=== PATIENT | female | born 1985 | race Caucasian/White ===

== ENCOUNTER 2018-09-04 17:31 | Emergency (ER) | payer BC, MEDICAID ==
[~2018-09-04] VITALS: Ht 180.3 cm; Wt 64.4 kg
[~2018-09-04 17:31] MED LIST: AMOX500C2 PO; CEPH250T PO
--- OUTSIDE RECORDS SUMMARY | 2018-09-04 17:37 | XMS REPORT ---
Author Author ELÍAS GOINS Organization [facility] Address [address] [place] [address] Care Team Providers Care Hand Painter Name Role Phone ELÍAS GOINS Unavailable PROBLEMS Unknown Problems ALLERGIES No Known Allergies ENCOUNTERS Encounter Location Date Diagnosis [facility] [address] [facility] [id number] [phone] May, Dental examination Z01.20 [facility] [address] [id number] [phone] Feb, Dental examination Z01.20 and Dental caries K02.9 IMMUNIZATIONS No Known Immunizations SOCIAL HISTORY Never Assessed REASON FOR VISIT ti PLAN OF CARE Activity Details Follow Up prn Reason:Extraction pending medical clearance VITAL SIGNS MEDICATIONS Medication Instructions Dosage Frequency Start Date End Date Duration Status Active RESULTS No Results PROCEDURES Procedure Date Ordered Result Body Site LTD ORAL EVALUATION - PROBLEM FOCUS May 30, 2017 INTRAORL-PERIAPICAL 1 FILM [id number] May 30, 2017 INSTRUCTIONS MEDICATIONS ADMINISTERED No Known Medications MEDICAL (GENERAL) HISTORY Type Description Date Medical History bronchitis Medical History back trouble Medical History neck injury Medical History 19 weeks Surgical History DNC 03/2014 Surgical History tonsilectomy Surgical History cholesectomy
--- OUTSIDE RECORDS SUMMARY | 2018-09-04 17:37 | XMS REPORT ---
Author Author ARMANDO GLOVER [facility] Address Unknown Care Team Providers Care Brew House Supervisor Name Role Phone ARMANDO GLOVER Unavailable PROBLEMS Unknown Problems ALLERGIES No Known Allergies ENCOUNTERS Encounter Location Date Diagnosis [facility] [id number] [phone] Mar, Dental examination Z01.20 and Dental caries K02.9 [facility] [id number] [address] January, [facility] [id number] [phone] May, Dental examination Z01.20 [facility] [id number] [phone] Feb, Dental examination Z01.20 and Dental caries K02.9 IMMUNIZATIONS No Known Immunizations SOCIAL HISTORY Never Assessed REASON FOR VISIT ti/marty kamara pt PLAN OF CARE Activity Details Follow Up prn Reason:hygiene VITAL SIGNS Blood pressure systolic 104 mmHg 2018-03-08 Blood pressure diastolic 68 mmHg 2018-03-08 MEDICATIONS Medication Instructions Dosage Frequency Start Date End Date Duration Status Active RESULTS No Results PROCEDURES Procedure Date Ordered Result Body Site LTD ORAL EVALUATION - PROBLEM FOCUS March 08, 2018 EXTRAC ERUPTED TOOTH/EXPOSED ROOT March 08, 2018 EXTRAC ERUPTED TOOTH/EXPOSED ROOT March 08, 2018 INSTRUCTIONS MEDICATIONS ADMINISTERED No Known Medications MEDICAL (GENERAL) HISTORY Type Description Date Medical History bronchitis Medical History back trouble Medical History neck injury Surgical History DNC 03/2014 Surgical History tonsilectomy Surgical History cholesectomy
--- OUTSIDE RECORDS SUMMARY | 2018-09-04 17:37 | XMS REPORT ---
Author Author ELÍAS Nath Organization [facility] Address [address] [place] [address] Care Team Providers Care Brake Tester Name Role Phone ELÍAS Nath Unavailable PROBLEMS Unknown Problems ALLERGIES No Information ENCOUNTERS Encounter Location Date Diagnosis [facility] [id number] [place] [phone] Mar, Dental examination Z01.20 and Dental caries K02.9 [facility] [id number], [place] [phone] January, [facility] [id number] [place] [phone] May, Dental examination Z01.20 [facility] [id number] [place] [phone] Feb, Dental examination Z01.20 and Dental caries K02.9 IMMUNIZATIONS No Known Immunizations SOCIAL HISTORY Never Assessed REASON FOR VISIT Requests return call PLAN OF CARE VITAL SIGNS MEDICATIONS Unknown Medications RESULTS No Results PROCEDURES No Known procedures INSTRUCTIONS MEDICATIONS ADMINISTERED No Known Medications MEDICAL (GENERAL) HISTORY Type Description Date Medical History bronchitis Medical History back trouble Medical History neck injury Surgical History DNC 03/2014 Surgical History tonsilectomy Surgical History cholesectomy
[2018-09-04 17:59] VITALS: BP 114/74
--- NOTE | 2018-09-04 18:42 | ED Cough/URI ---
General Chief Complaint: Cough/Cold/Flu Symptoms Stated Complaint: BILAT EAR PAIN/CONGESTION Nursing Triage Note: PT PRESENTS TO ED WITH COMPLAINTS OF BILATERAL EAR PAIN AND RUNNY NOSE. Source: patient Exam Limitations: no limitations History of Present Illness Date Seen by Provider: Sep 04, 2018 Time Seen by Provider: 18:42 Initial Comments patient left prior to being seen. Allergies and Home Medications Allergies Coded Allergies: amoxicillin (Verified Allergy, Unknown, 09/04/18) Home Medications No Active Prescriptions or Reported Meds Patient Home Medication List Home Medication List Reviewed: Yes Review of Systems Review of Systems Constitutional: other (patient left prior to being seen.) Past Tgdhcuq-Kavcaz-Goluev Hx Patient Social History Alcohol Use: Denies Use Recreational Drug Use: No Smoking Status: Never a Smoker Recent Foreign Travel: No Contact w/Someone Who Travel: No Recent Infectious Disease Expo: No Recent Hopitalizations: Yes Past Medical History Surgeries: Yes (DNC) Gallbladder, Tonsillectomy Respiratory: No Cardiac: No Neurological: No Last Menstrual Period: Aug 07, 2018 Sexually Transmitted Disease: Yes Genitourinary: No Gastrointestinal: No Musculoskeletal: No Endocrine: No HEENT: No Cancer: No Psychosocial: No Blood Disorders: No Physical Exam Vital Signs - First Documented 09/04/18 09/04/18 17:59 18:14 Temp 97.1 Pulse 70 Resp 18 B/P (MAP) 114/74 (87) Pulse Ox 100 O2 Delivery Room Air Capillary Refill : Less Than 3 Seconds Height: 5'11.00" Weight: 142lbs. oz. 64.696823cp; BMI Method:Stated General Appearance: other (patient left prior to being seen.) Progress/Results/Core Measures Suspected Sepsis Recent Fever Within 48 Hours: No Infection Criteria Present: None New/Unexplained Altered Menta: No Sepsis Screen: No Definite Risk SIRS Temperature:97.1 Pulse: 70 Respiratory Rate: 18 Blood Pressure 114 /74 Mean: 87 Results/Orders My Orders Orders - JAZMINE CALIX Influenza A And B Antigens (09/04/18 18:56) Vital Signs/I&O 09/04/18 09/04/18 17:59 18:14 Temp 97.1 Pulse 70 Resp 18 B/P (MAP) 114/74 (87) Pulse Ox 100 O2 Delivery Room Air Capillary Refill : Less Than 3 Seconds Blood Pressure Mean: 87 Departure Communication (Admissions) Dr. Leigh notified of patient leaving prior to being seen. Impression Primary Impression: Patient left without being seen Disposition: 07 AGAINST MEDICAL ADVICE (patient left prior to being seen.) Condition: Against Medical Advice (patient left prior to being seen.) Departure-Patient Inst. Referrals: PINA HAMLIN (PCP/Family) Primary Care Physician Scripts No Active Prescriptions or Reported Meds JAZMINE CALIX Sep 04, 2018 18:42
== END 2018-09-04 19:00 | disposition left against medical advice (07) ==
LOC: EDUNIT# 17:31 → ER 17:34
DX: H92.03 Otalgia, bilateral (principal); R09.81 Nasal congestion; Z88.0 Allergy status to penicillin; Z90.89 Acquired absence of other organs; Z98.890 Other specified postprocedural states; Z86.19 Personal history of other infectious and parasitic diseases
CPT/HCPCS: 99282

== ENCOUNTER 2018-11-15 18:39 | Observation (INO) | payer BC ==
[~2018-11-15] VITALS: Ht 177.8 cm; Wt 61.5 kg
[2018-11-15] MEDS ORDERED: ONDA4TAB11 PO (18:55)
[2018-11-15] MEDS ORDERED: NS IV 1000 ML 1,000 ML IV SCH (19:15)
[2018-11-15] MEDS ORDERED: ACETAMINOPHEN 500 MG TAB (TYLENOL) PO ONE (19:15)
[2018-11-15] MEDS ORDERED: ONDANSETRON 4 MG/2 ML (SDV) Z0FRAN IVP ONE (19:15)
--- NOTE | 2018-11-15 19:18 | ED General ---
General Chief Complaint: Abdominal/GI Problems Stated Complaint: VOMITING,INFLUENZA A,EIGHT WEEKS PREG Nursing Triage Note: pt presents to ed with complaints of n/v/d startimng this am. reports she has been unable to keep any food or liquid down today. pt was diagnosed with flu a yesterday [facility]. pt is also aprox 8 weeks preg. Nursing Sepsis Screen: Possible Sepsis Risk Source of Information: Patient Exam Limitations: No Limitations History of Present Illness Date Seen by Provider: Nov 15, 2018 Time Seen by Provider: 19:15 Initial Comments To ER with reports of nausea vomiting diarrhea that began this morning. She was diagnosed with influenza A based on a flu swab was done at the [facility] yesterday, her symptoms at that time were headache cough sore throat and fever that began on Monday11/12/18. She is prescribed Zofran and Tamiflu. She did not even try to take the Tamiflu because it has historically nauseated her. She did attempt the sublingual Zofran but states that she threw up. She tried to take Tylenol earlier today but vomited as soon as she took it. She is about 8.5 weeks gestation following with Dr. Rivera, Ab4. Primary care provider is Pina Hamlin nurse practitioner. Timing/Duration: 3-4 Days Severity: Moderate Associated Systoms: Cough, Fever/Chills, Nausea/Vomiting, Weakness Allergies and Home Medications Allergies Coded Allergies: amoxicillin (Verified Allergy, Unknown, 09/04/18) Home Medications Potassium Chloride 20 Meq Packet, 40 MEQ PO DAILY Prescribed by: EM PORTILLO on 11/15/182221 Promethazine HCl 25 Mg Tablet, 25 MG PO Q8H PRN for NAUSEA/VOMITING Prescribed by: EM PORTILLO on 11/15/182221 Patient Home Medication List Home Medication List Reviewed: Yes Review of Systems Review of Systems Constitutional: see HPI, chills, fever, malaise, weakness EENTM: see HPI, throat pain Respiratory: see HPI, cough Cardiovascular: no symptoms reported Genitourinary: no symptoms reported Expected Date of Delivery: Jun 25, 2019 Musculoskeletal: no symptoms reported Skin: no symptoms reported Psychiatric/Neurological: No Symptoms Reported Past Gkkjzsd-Ksgoze-Tipwfw Hx Patient Social History Alcohol Use: Denies Use Recreational Drug Use: No Smoking Status: Never a Smoker Recent Foreign Travel: No Contact w/Someone Who Travel: No Recent Infectious Disease Expo: No Recent Hopitalizations: Yes Physical Abuse: No Sexual Abuse: No Mistreated: No Fear: No Past Medical History Surgeries: Yes (DNC) Gallbladder, Tonsillectomy Respiratory: No Cardiac: No Neurological: No : Yes Expected Date of Delivery: Jun 25, 2019 Sexually Transmitted Disease: Yes Genitourinary: No Gastrointestinal: No Musculoskeletal: No Endocrine: No HEENT: No Cancer: No Psychosocial: No Integumentary: No Blood Disorders: No Physical Exam Vital Signs Vital Signs - First Documented 11/15/18 18:48 Temp 103.3 Pulse 154 Resp 22 B/P (MAP) 97/63 (74) Pulse Ox 97 Capillary Refill : Less Than 3 Seconds Height, Weight, BMI Height: 5'11.00" Weight: 139lbs. oz. 63.449987cn; BMI Method:Stated General Appearance: No Apparent Distress, WD/WN Eyes: Bilateral Eye Normal Inspection, Bilateral Eye PERRL, Bilateral Eye EOMI HEENT: PERRL/EOMI, TMs Normal Respiratory: No Accessory Muscle Use, No Respiratory Distress Cardiovascular: Regular Rate, Rhythm, Normal Peripheral Pulses Gastrointestinal: Non Tender, Soft Extremity: Normal Capillary Refill, Normal Inspection Neurologic/Psychiatric: Alert, Oriented x3 Skin: Normal Color, Warm/Dry Progress/Results/Core Measures Suspected Sepsis Recent Fever Within 48 Hours: Yes Infection Criteria Present: Documented Infection New/Unexplained Altered Menta: No Sepsis Screen: Possible Sepsis Risk SIRS Temperature:103.3 Pulse: 154 Respiratory Rate: 22 Laboratory Tests 11/15/18 19:11: White Blood Count 10.8 Blood Pressure 97 /63 Mean: 74 Laboratory Tests 11/15/18 19:11: Creatinine 0.99, Platelet Count 106L, Total Bilirubin 0.5 Results/Orders Lab Results Laboratory Tests Test 11/15/18 19:11 Range/Units White Blood Count 10.8 4.3-11.0 10^3/uL Red Blood Count 4.92 4.35-5.85 10^6/uL Hemoglobin 15.1 11.5-16.0 G/DL Hematocrit 43 35-52 % Mean Corpuscular Volume 88 80-99 FL Mean Corpuscular Hemoglobin 31 25-34 PG Mean Corpuscular Hemoglobin Concent 35 32-36 G/DL Red Cell Distribution Width 12.9 10.0-14.5 % Platelet Count 106 L 130-400 10^3/uL Mean Platelet Volume 10.9 H 7.4-10.4 FL Neutrophils (%) (Auto) 93 H 42-75 % Lymphocytes (%) (Auto) 4 L 12-44 % Monocytes (%) (Auto) 2 0-12 % Eosinophils (%) (Auto) 0 0-10 % Basophils (%) (Auto) 0 0-10 % Neutrophils # (Auto) 10.1 H 1.8-7.8 X 10^3 Lymphocytes # (Auto) 0.5 L 1.0-4.0 X 10^3 Monocytes # (Auto) 0.2 0.0-1.0 X 10^3 Eosinophils # (Auto) 0.0 0.0-0.3 10^3/uL Basophils # (Auto) 0.0 0.0-0.1 10^3/uL Neutrophils % (Manual) 73 % Lymphocytes % (Manual) 11 % Monocytes % (Manual) 1 % Eosinophils % (Manual) 0 % Basophils % (Manual) 0 % Metamyelocytes % 1 % Band Neutrophils 14 % Blood Morphology Comment NORMAL Sodium Level 137 135-145 MMOL/L Potassium Level 3.2 L 3.6-5.0 MMOL/L Chloride Level 101 98-107 MMOL/L Carbon Dioxide Level 20 L 21-32 MMOL/L Anion Gap 16 H 5-14 MMOL/L Blood Urea Nitrogen 9 7-18 MG/DL Creatinine 0.99 0.60-1.30 MG/DL Estimat Glomerular Filtration Rate > 60 BUN/Creatinine Ratio 9 Glucose Level 141 H 70-105 MG/DL Calcium Level 9.4 8.5-10.1 MG/DL Corrected Calcium 8.5-10.1 MG/DL Total Bilirubin 0.5 0.1-1.0 MG/DL Aspartate Amino Transf (AST/SGOT) 38 H 5-34 U/L Alanine Aminotransferase (ALT/SGPT) 37 0-55 U/L Alkaline Phosphatase 77 40-136 U/L Total Protein 8.1 6.4-8.2 GM/DL Albumin 4.8 H 3.2-4.5 GM/DL My Orders Orders - EM PORTILLO ROLL UP HELPER Cbc With Automated Diff (11/15/18 19:03) Comprehensive Metabolic Panel (11/15/18 19:03) Ua Culture If Indicated (11/15/18 19:03) Iv Heplock-Insert (Order) (11/15/18 19:03) Ns Iv 1000 Ml (Sodium Chloride 0.9%) (11/15/18 19:15) Ondansetron Injection (Zofran Injectio (11/15/18 19:15) Acetaminophen Tablet (Tylenol Tablet) (11/15/18 19:15) Manual Differential (11/15/18 19:11) Promethazine Injection (Phenergan Injec (11/15/18 20:15) Prochlorperazine Injection (Compazine In (11/15/18 20:15) Diphenhydramine Injection (Benadryl Inje (11/15/18 20:15) Lactated Ringers (Lr 1000 Ml Iv Solution (11/15/18 20:15) Drug Screen Stat (Urine) (11/15/18 20:08) Promethazine Injection (Phenergan Injec (11/15/18 20:15) Acetaminophen Suppository (Tylenol Suppo (11/15/18 21:00) Ibuprofen Tablet (Motrin Tablet) (11/15/18 21:00) Loperamide Capsule (Imodium Capsule) (11/15/18 22:15) Medications Given in ED Current Medications Medications Dose Ordered Sig/Fatmata Route Start Time Stop Time Status Last Admin Dose Admin Acetaminophen 650 mg ONCE ONCE AK 11/15/18 21:00 11/15/18 21:01 DC 11/15/18 20:54 650 MG Ibuprofen 800 mg ONCE ONCE PO 11/15/18 21:00 11/15/18 21:01 DC 11/15/18 21:09 800 MG Loperamide HCl 4 mg ONCE ONCE PO 11/15/18 22:15 11/15/18 22:16 DC 11/15/18 22:33 4 MG Ondansetron HCl 8 mg ONCE ONCE IVP 11/15/18 19:15 11/15/18 19:16 DC 11/15/18 19:30 8 MG Promethazine HCl 25 mg ONCE ONCE IVP 11/15/18 20:15 11/15/18 20:16 DC 11/15/18 20:18 25 MG Vital Signs/I&O 11/15/18 11/15/18 11/15/18 11/15/18 18:48 20:54 20:54 21:09 Temp 103.3 103.4 103.4 103.5 Pulse 154 Resp 22 B/P (MAP) 97/63 (74) Pulse Ox 97 Capillary Refill : Less Than 3 Seconds Blood Pressure Mean: 74 Departure Communication (Admissions) Time/Spoke to Admitting Phy: 22:41 2241-she has a blood pressure of 98/55, heart rate still 130 after 2 L of IV fluids. Her potassium is a bit low at 3.2. Her temperature has come down nicely to 99.1. Given that she is still hypotensive and tachycardic we will admit. I discussed the case with her surgery tech Dr. Rivera. Agrees to admit observation , nausea control, IV fluids, he has no further recommendations at this time. Impression Primary Impression: Influenza A Additional Impressions: Nausea vomiting and diarrhea volume depletion in Disposition: ADMITTED INPATIENT Condition: Stable Admissions Decision to Admit Reason: Admit from ER (General) Decision to Admit/Date: Nov 15, 2018 Time/Decision to Admit Time: 22:42 Departure-Patient Inst. Decision time for Depature: 22:13 Referrals: NO,LOCAL PHYSICIAN (PCP) Primary Care Physician PINA HAMLIN (Family) Primary Care Physician Work/School Note: Work Release Form Date Seen in the Emergency Department: Nov 15, 2018 Return to Work: Nov 21, 2018 Copy Copies To 1: DAMON MANNING PETER J APRN Nov 15, 2018 19:18
[2018-11-15 19:23] LABS: BASOPHILS % (AUTO) 0 % (0-10); EOSINOPHILS % (AUTO) 0 % (0-10); HEMATOCRIT 43 % (35-52); HEMOGLOBIN 15.1 G/DL (11.5-16.0); LYMPHOCYTES # (AUTO) 0.5 X 10^3 (1.0-4.0); LYMPHOCYTES % (AUTO) 4 % (12-44); MEAN CORPUSCULAR HEMOGLOBIN 31 PG (25-34); MEAN CORPUSCULAR HGB CONC 35 G/DL (32-36); MEAN CORPUSCULAR VOLUME 88 FL (80-99); MEAN PLATELET VOLUME 10.9 FL (7.4-10.4); MONOCYTES # (AUTO) 0.2 X 10^3 (0.0-1.0); MONOCYTES % (AUTO) 2 % (0-12); NEUTROPHILS # (AUTO) 10.1 X 10^3 (1.8-7.8); NEUTROPHILS % (AUTO) 93 % (42-75); PLATELET COUNT 106 10^3/uL (130-400); RED CELL DISTRIBUTION WIDTH 12.9 % (10.0-14.5); WHITE BLOOD COUNT 10.8 10^3/uL (4.3-11.0)
[2018-11-15 19:40] LABS: ALANINE AMINOTRANSFERASE 37 U/L (0-55); ALBUMIN 4.8 GM/DL (3.2-4.5); ALKALINE PHOSPHATASE 77 U/L (40-136); BILIRUBIN,TOTAL 0.5 MG/DL (0.1-1.0); BUN/CREATININE RATIO 9; CALCIUM 9.4 MG/DL (8.5-10.1); CARBON DIOXIDE 20 MMOL/L (21-32); CHLORIDE 101 MMOL/L (98-107); CREATININE SERUM 0.99 MG/DL (0.60-1.30); GFR ESTIMATED > 60; GLUCOSE 141 MG/DL (70-105); POTASSIUM 3.2 MMOL/L (3.6-5.0); SODIUM 137 MMOL/L (135-145); TOTAL PROTEIN 8.1 GM/DL (6.4-8.2)
--- NOTE | 2018-11-15 19:50 | NUR ---
PT REPORTS SHE CONTINUES TO BE NAUSEOUS AFTER ZOFRAN ADM. PROVIDER NOTIFIED.
[2018-11-15 19:53] LABS: BAND NEUTROPHILS 14 %; BASOPHILS % (MANUAL) 0 %; EOSINOPHILS % (MANUAL) 0 %; LYMPHOCYTES % (MANUAL) 11 %; METAMYELOCYTES % 1 %; MONOCYTES % (MANUAL) 1 %; NEUTROPHILS % (MANUAL) 73 %; RBC MORPH NORMAL
--- NOTE | 2018-11-15 20:08 | NUR ---
PT REFUSED PROMETHAZINE ADM. PT STATES, "I CAN'T TAKE THAT MEDICATION, IT MAKES ME NAUSEOUS."
--- NOTE | 2018-11-15 20:11 | NUR ---
THIS RN CALLED INTO PT ROOM. PT REQUESTING PROMETHAZINE @ THIS TIME. PT STATES, "I WAS THINKING OF THE WRONG MEDICATION, I CAN TAKE THAT." PROVIDER NOTIFIED.
[2018-11-15] MEDS ORDERED: LACTATED RINGERS 1,000 ML IV SCH (20:15)
[2018-11-15] MEDS ORDERED: PROMETHAZINE INJ 25 MG/ML (PHENERGAN) AMP IVP ONE ×2 (20:15)
[2018-11-15] MEDS ORDERED: diphenhydrAMINE 50 MG/ML INJ (BENADRYL) IVP ONE (20:15)
[2018-11-15] MEDS ORDERED: PROCHLORPERAZINE 10 MG/2ML INJ (COMPAZINE) IV ONE (20:15)
[2018-11-15] MEDS ORDERED: ACETAMINOPHEN 650 MG SUPP (TYLENOL) PR ONE (21:00)
[2018-11-15] MEDS ORDERED: IBUPROFEN 800 MG (MOTRIN) TAB PO ONE (21:00)
--- NOTE | 2018-11-15 22:05 | NUR ---
PCCT ASSISTED PT ONTO BEDSIDE COMMODE. PT NOTED TO BE INCONTINENT OF LOOSE BOWEL. Addendum: 11/15/18 at 2330 by LAYLA UNABLE TO OBTAIN URINE SAMPLE DT BOWEL CONTAMINATION.
[2018-11-15] MEDS ORDERED: LOPERAMIDE 2 MG (IMODIUM) CAP PO ONE (22:15)
[2018-11-15] MEDS ORDERED: PROM25TA14 PO (22:22)
[2018-11-15] MEDS ORDERED: POTA20PA28 PO (22:22)
[2018-11-15 23:25] VITALS: BP 98/57
[2018-11-15] MEDS ORDERED: IBUPROFEN 600 MG (MOTRIN) TAB PO PRN (23:45)
[2018-11-15] MEDS ORDERED: CATHETER FLUSH 10 ML SYR IV PRN (23:45)
[2018-11-15] MEDS ORDERED: ONDANSETRON 4 MG/2 ML (SDV) Z0FRAN IV PRN (23:45)
[2018-11-15] MEDS ORDERED: PROMETHAZINE INJ 25 MG/ML (PHENERGAN) AMP IV PRN (23:45)
[2018-11-16] MEDS: NS W/KCL 40 MEQ/L 1,000 ML IV SCH ×2 (00:24→07:54)
[2018-11-16 04:00] VITALS: BP 95/50
[2018-11-16 04:01] LABS: BILIRUBIN,URINE NEGATIVE (NEGATIVE); CLARITY,URINE CLEAR; COLOR,URINE YELLOW; GLUCOSE, URINE (UA) NEGATIVE (NEGATIVE); KETONES,URINE 2+ (NEGATIVE); LEUKOCYTE ESTERASE ,URINE 1+ (NEGATIVE); NITRITE,URINE NEGATIVE (NEGATIVE); PH,URINE 6 (5-9); PROTEIN,URINE NEGATIVE (NEGATIVE); UROBILINOGEN,URINE NORMAL (NORMAL)
[2018-11-16 04:17] LABS: AMPHETAMINE SCREEN, URINE NEGATIVE (NEGATIVE); BACTERIA,URINE FEW /HPF; BARBITURATE SCREEN URINE NEGATIVE (NEGATIVE); BENZODIAZEPINES SCREEN URINE NEGATIVE (NEGATIVE); CANNABINOID SCREEN, URINE NEGATIVE (NEGATIVE); COCAINE SCREEN URINE NEGATIVE (NEGATIVE); METHADONE STAT NEGATIVE (NEGATIVE); METHAMPHETAMINE SCREEN URINE S NEGATIVE (NEGATIVE); OPIATE SCREEN URINE NEGATIVE (NEGATIVE); OXYCODONE STAT NEGATIVE (NEGATIVE); PROPOXYPHENE STAT NEGATIVE (NEGATIVE); SQUAMOUS EPITHELIAL CELL,UR 0-2 /HPF; TRICYCLIC ANTIDEPRESSANTS SCRE NEGATIVE (NEGATIVE); WBC,URINE 0-2 /HPF
[2018-11-16 05:54] LABS: BASOPHILS % (AUTO) 0 % (0-10); EOSINOPHILS % (AUTO) 0 % (0-10); HEMATOCRIT 36 % (35-52); HEMOGLOBIN 12.6 G/DL (11.5-16.0); LYMPHOCYTES # (AUTO) 0.4 X 10^3 (1.0-4.0); LYMPHOCYTES % (AUTO) 5 % (12-44); MEAN CORPUSCULAR HEMOGLOBIN 31 PG (25-34); MEAN CORPUSCULAR HGB CONC 35 G/DL (32-36); MEAN CORPUSCULAR VOLUME 89 FL (80-99); MEAN PLATELET VOLUME 11.1 FL (7.4-10.4); MONOCYTES # (AUTO) 0.2 X 10^3 (0.0-1.0); MONOCYTES % (AUTO) 3 % (0-12); NEUTROPHILS # (AUTO) 6.9 X 10^3 (1.8-7.8); NEUTROPHILS % (AUTO) 91 % (42-75); PLATELET COUNT 85 10^3/uL (130-400); RED CELL DISTRIBUTION WIDTH 12.8 % (10.0-14.5); WHITE BLOOD COUNT 7.6 10^3/uL (4.3-11.0)
[2018-11-16] MEDS ORDERED: CATHETER FLUSH 10 ML SYR IV SCH (06:00)
[2018-11-16 06:07] LABS: BUN/CREATININE RATIO 14; CARBON DIOXIDE 18 MMOL/L (21-32); CHLORIDE 112 MMOL/L (98-107); CREATININE SERUM 0.66 MG/DL (0.60-1.30); GFR ESTIMATED > 60; GLUCOSE 118 MG/DL (70-105); POTASSIUM 3.1 MMOL/L (3.6-5.0); SODIUM 139 MMOL/L (135-145)
[2018-11-16] MEDS: ACETAMINOPHEN 325 MG TABLET PO PRN ×2 (07:55→18:01)
[2018-11-16 08:00] VITALS: BP 104/58
[2018-11-16] MEDS ORDERED: PREN-8 PO (10:00)
[2018-11-16] MEDS ORDERED: CHLORASEPTIC LOZENGE MM PRN (10:45)
[2018-11-16] MEDS ORDERED: APAP 300 MG/CODEINE 30 MG (TYLENOL #3) TAB PO PRN (10:45)
[2018-11-16] MEDS ORDERED: OSELTAMIVIR 75 MG (TAMIFLU) CAPSULE PO SCH (11:03)
[2018-11-16 12:00] VITALS: BP 101/57
--- NOTE | 2018-11-16 13:50 | History & Physical-OB/GYN ---
History of Present Illness History of Present Illness Reason for visit/HPI with confirmed Influenza Date of Admission Nov 15, 2018 at 22:38 Date Seen by a Provider: Nov 16, 2018 Time Seen by a Provider: 13:40 I consulted on this patient on 11/16/18 13:43 Attending Physician Iggy Ordoñez DO Admitting Physician No,Local Physician Consult Allergies and Home Medications Allergies Coded Allergies: amoxicillin (Verified Allergy, Unknown, 09/04/18) Home Medications Ondansetron 4 Mg Tab.rapdis, 4 MG PO Q8H PRN for NAUSEA/VOMITING-1ST LINE, ( Reported) Vit W-Ca,Fe,FA(<1 mg) 1 Each Tablet, 1 TAB PO DAILY, (Reported) Patient Home Medication List Home Medication List Reviewed: Yes Past Wlephqg-Gyvrdg-Onslgk Hx Patient Social History Marrital Status: Number of Children: 4 Number of living children: 4 Alcohol Use: Denies Use Recreational Drug Use: No Smoking Status: Never a Smoker Recent Foreign Travel: No Contact w/other who traveled: No Recent Hopitalizations: Yes Recent Infectious Disease Expo: No Surgeries Yes (DNC) Gallbladder, Tonsillectomy Respiratory No Cardiovascular No Neurological No Reproductive System : Yes Expected Date of Delivery: Jun 25, 2019 Sexually Transmitted Disease: Yes Genitourinary No Gastrointestinal No Musculoskeletal No Endocrine History of Endocrine Disorders: No HEENT History of HEENT Disorders: No Cancer No Psychosocial History of Psychiatric Problem: No Integumentary History of Skin or Integumenta: No Blood Transfusions History of Blood Disorders: No Review of Systems Constitutional: fever, weakness, other (Tachycardia) Physical Exam Physical Exam Vital Signs Vital Signs Date Time Temp Pulse Resp B/P (MAP) Pulse Ox O2 Delivery O2 Flow Rate FiO2 11/16/18 08:00 98.4 95 18 104/58 (73) 100 Room Air 11/16/18 08:00 Room Air 11/16/18 04:00 98.7 89 20 95/50 (65) Room Air 11/15/18 23:25 96.6 109 20 98/57 97 Room Air 11/15/18 23:25 Room Air 11/15/18 23:17 99.3 130 18 96/63 (74) 98 Room Air 11/15/18 21:09 103.5 11/15/18 20:54 103.4 11/15/18 20:54 103.4 3/14/19 18:48 103.3 154 22 97/63 (71) 97 I & O 11/16/18 07:00 Intake Total 2340 ml Balance 2340 ml Capillary Refill : Less Than 3 Seconds Labs Laboratory Tests 11/15/18 19:11: White Blood Count 10.8, Red Blood Count 4.92, Hemoglobin 15.1, Hematocrit 43, Mean Corpuscular Volume 88, Mean Corpuscular Hemoglobin 31, Mean Corpuscular Hemoglobin Concent 35, Red Cell Distribution Width 12.9, Platelet Count 106L, Mean Platelet Volume 10.9H, Neutrophils (%) (Auto) 93H, Lymphocytes (%) (Auto) 4L, Monocytes (%) (Auto) 2, Eosinophils (%) (Auto) 0, Basophils (%) (Auto) 0, Neutrophils # (Auto) 10.1H, Lymphocytes # (Auto) 0.5L, Monocytes # (Auto) 0.2, Eosinophils # (Auto) 0.0, Basophils # (Auto) 0.0, Neutrophils % (Manual) 73, Lymphocytes % (Manual) 11, Monocytes % (Manual) 1, Eosinophils % (Manual) 0, Basophils % (Manual) 0, Metamyelocytes % 1, Band Neutrophils 14, Blood Morphology Comment NORMAL, Sodium Level 137, Potassium Level 3.2L, Chloride Level 101, Carbon Dioxide Level 20L, Anion Gap 16H, Blood Urea Nitrogen 9, Creatinine 0.99, Estimat Glomerular Filtration Rate > 60, BUN/Creatinine Ratio 9 , Glucose Level 141H, Calcium Level 9.4, Corrected Calcium , Total Bilirubin 0.5 , Aspartate Amino Transf (AST/SGOT) 38H, Alanine Aminotransferase (ALT/SGPT) 37 , Alkaline Phosphatase 77, Total Protein 8.1, Albumin 4.8H 11/16/18 03:45: Urine Color YELLOW, Urine Clarity CLEAR, Urine pH 6, Urine Specific [place] 1.015L, Urine Protein NEGATIVE, Urine Glucose (UA) NEGATIVE, Urine Ketones 2+H, Urine Nitrite NEGATIVE, Urine Bilirubin NEGATIVE, Urine Urobilinogen NORMAL, Urine Leukocyte Esterase 1+H, Urine RBC (Auto) NEGATIVE, Urine RBC NONE, Urine WBC 0-2, Urine Squamous Epithelial Cells 0-2, Urine Crystals NONE, Urine Bacteria FEWH, Urine Casts NONE, Urine Mucus NEGATIVE, Urine Culture Indicated NO, Urine Opiates Screen NEGATIVE, Urine Oxycodone Screen NEGATIVE, Urine Methadone Screen NEGATIVE, Urine Propoxyphene Screen NEGATIVE, Urine Barbiturates Screen NEGATIVE, Ur Tricyclic Antidepressants Screen NEGATIVE, Urine Phencyclidine Screen NEGATIVE, Urine Amphetamines Screen NEGATIVE, Urine Methamphetamines Screen NEGATIVE, Urine Benzodiazepines Screen NEGATIVE, Urine Cocaine Screen NEGATIVE, Urine Cannabinoids Screen NEGATIVE 11/16/18 05:28: White Blood Count 7.6, Red Blood Count 4.04L, Hemoglobin 12.6, Hematocrit 36, Mean Corpuscular Volume 89, Mean Corpuscular Hemoglobin 31, Mean Corpuscular Hemoglobin Concent 35, Red Cell Distribution Width 12.8, Platelet Count 85L, Mean Platelet Volume 11.1H, Neutrophils (%) (Auto) 91H, Lymphocytes (%) (Auto) 5L, Monocytes (%) (Auto) 3, Eosinophils (%) (Auto) 0, Basophils (%) (Auto) 0, Neutrophils # (Auto) 6.9, Lymphocytes # (Auto) 0.4L, Monocytes # (Auto) 0.2, Eosinophils # (Auto) 0.0, Basophils # (Auto) 0.0, Sodium Level 139, Potassium Level 3.1L, Chloride Level 112#H, Carbon Dioxide Level 18L, Anion Gap 9, Blood Urea Nitrogen 9, Creatinine 0.66, Estimat Glomerular Filtration Rate > 60, BUN/ Creatinine Ratio 14, Glucose Level 118H, Calcium Level 8.0L Assessment/Plan Assessment and Plan Assessment: Fever 2. Tachycardia 3. Influenza 4. Intrauterine at approximately 8 weeks 5. Hyperemesis Plan: Admitted to the hospital for fever control and flu treatment. Once Ms. Claudio fever came down, so did her heart rate. We started Ms. Claudio on Tamiflu Admission Diagnosis Admission Status: Observation Reason for Inpatient Admission: with fever and maternal tachycardia Clinical Quality Measures DVT/VTE Risk/Contraindication: Risk Factor Score Per Nursin RFS Level Per Nursing on Admit: 2=Moderate IGGY ORDOÑEZ DO Nov 16, 2018 13:49
--- NOTE | 2018-11-16 13:53 | Discharge Inst-Simple/Standard ---
Discharge Inst-Standard Discharge Medications New, Converted or Re-Newed RX: RX Given to Pt/Family Patient Instructions/Follow Up Plan of Care/Instructions/FU: Discharge to home with instructions, prescriptions and a follow up appointment for 11/19/2018 Activity as Tolerated: Yes Discharge Diet: No Restrictions Return to The Hospital For: Temperature elevation, worsening of symptoms DAMON MANNING DO Nov 16, 2018 13:53
[2018-11-16] MEDS ORDERED: PROM25TA14 PO (13:59)
[2018-11-16] MEDS ORDERED: ACET1TAB43 PO (13:59)
[2018-11-16] MEDS ORDERED: OSLT75C PO (13:59)
[2018-11-16] MEDS ORDERED: diphenhydrAMINE 50 MG/ML INJ (BENADRYL) IVP NR (14:10)
== END 2018-11-16 18:30 | disposition home or self-care (01) ==
LOC: EDUNIT# 18:39 → ER 18:41 → 4TH 22:38
PROVIDERS: ADMIT Obstetrics & Gynecology; ATTEND Obstetrics & Gynecology
DX: O99.511 Diseases of the respiratory system complicating pregnancy, first trimester (principal); J10.1 Influenza due to other identified influenza virus with other respiratory manifestations; O21.0 Mild hyperemesis gravidarum; R50.9 Fever, unspecified; R00.0 Tachycardia, unspecified; O99.281 Endocrine, nutritional and metabolic diseases complicating pregnancy, first trimester; E86.9 Volume depletion, unspecified; Z3A.08 8 weeks gestation of pregnancy
CPT/HCPCS: 36415; 80048; 80053; 80306; 81000; 85007; 85025; 85027; 93041; 96361; 96374; 96375; G0378

== ENCOUNTER 2019-02-23 19:47 | Emergency (ER) | payer BC, MEDICAID ==
[~2019-02-23] VITALS: Ht 177.8 cm; Wt 61.5 kg
[~2019-02-23 19:47] MED LIST changes: +ACET1TAB43 PO; +ONDA4TAB11 PO; +OSLT75C PO; +POTA20PA28 PO; +PREN-8 PO; +PROM25TA14 PO
[2019-02-23] MEDS ORDERED: CEPHALEXIN 250 MG (KEFLEX) CAP PO STA (20:10)
[2019-02-23] MEDS ORDERED: ACETAMINOPHEN 500 MG TAB (TYLENOL) PO STA (20:12)
[2019-02-23] MEDS ORDERED: LIDOCAINE 2% VISCOUS 15 ML UDC PO ONE (20:15)
--- NOTE | 2019-02-23 20:20 | ED EENT ---
History of Present Illness General Chief Complaint: Dental Problems/Pain Stated Complaint: TOOTHACHE Source: patient Exam Limitations: no limitations History of Present Illness Date Seen by Provider: Feb 23, 2019 Time Seen by Provider: 19:57 Initial Comments Here with complaint of dental pain after extraction. She apparently had 13 teeth removed from the maxilla. This was essentially all remaining teeth in the upper mouth. Complains of pain that is not getting better since instructions are all days ago. The stitches have subsequently fallen out. No fever. She has taken Tylenol 3 at nighttime and can't take it during the day because she has to function because she has 4 other kids. She is 23 weeks . She is not currently on antibiotics. She is concerned about that. She is allergic to penicillin but has taken cephalexin without problems previously. She has not tried Tylenol/acetaminophen in lieu of the Tylenol 3 or with for pain relief. She did note yesterday.. She is having not breathing or swallowing problems. No nausea or vomiting. Timing/Duration: other (last 3 days) Severity: moderate Location: mouth, dental Prearrival Treatment: prescription meds Associated Symptoms: No facial pain/swelling, No fever Allergies and Home Medications Allergies Coded Allergies: amoxicillin (Verified Allergy, Unknown, 09/04/18) Home Medications Acetaminophen with Codeine 1 Each Tablet, 1 TAB PO Q6H PRN for PAIN-MODERATE Prescribed by: DAMON MANNING on 11/16/18 1352 Ondansetron 4 Mg Tab.rapdis, 4 MG PO Q8H PRN for NAUSEA/VOMITING-1ST LINE, (Reported) Oseltamivir Phosphate 75 Mg Cap, 75 MG PO BID Prescribed by: DAMON MANNING on 11/16/18 1359 Vit W-Ca,Fe,FA(<1 mg) 1 Each Tablet, 1 TAB PO DAILY, (Reported) Promethazine HCl 25 Mg Tablet, 25 MG PO Q6H PRN for NAUSEA/VOMITING Prescribed by: DAMON MANNIGN on 11/16/18 1359 Patient Home Medication List Home Medication List Reviewed: Yes Review of Systems Review of Systems Constitutional: see HPI; No chills, No fever Mouth: see HPI, pain; denies swelling, denies bloody discharge, denies clear discharge, denies purulent discharge Throat: no symptoms reported Respiratory: no symptoms reported Cardiovascular: no symptoms reported Gastrointestinal: no symptoms reported Past Ihxrnjm-Oynhre-Svzzll Hx Past Med/Social Hx: Reviewed Nursing Past Med/Soc Hx Patient Social History Alcohol Use: Denies Use Recreational Drug Use: No Smoking Status: Former Smoker Recent Foreign Travel: No Contact w/Someone Who Travel: No Recent Hopitalizations: No Past Medical History Surgeries: Yes ([facility]) Gallbladder, Tonsillectomy Respiratory: No Cardiac: No Neurological: No Sexually Transmitted Disease: Yes Genitourinary: No Gastrointestinal: No Musculoskeletal: No Endocrine: No HEENT: No Cancer: No Psychosocial: No Integumentary: No Blood Disorders: No Family Medical History Reviewed Nursing Family Hx Physical Exam Height, Weight, BMI Height: 5'10.00" Weight: 135lbs. 8.0oz. 61.712161yt; 19.4 BMI Method:Stated General Appearance: WD/WN, no apparent distress Mouth/Throat: other (does have multiple extractions in the upper mouth and there are no remaining teeth on the upper. Dental wounds appear to be healing well without significant erythema or swelling. No other intraoral problems noted. Swallowing and breathing without difficulty.) Neck: non-tender, full range of motion, supple, normal inspection Cardiovascular: regular rate, rhythm, no murmur Respiratory: lungs clear, normal breath sounds Neurologic/Psychiatric: alert, oriented x 3 Skin: normal color, warm/dry Progress/Results/Core Measures Results/Orders My Orders Orders - VIRGINIE GARCIA MD Lidocaine 2% Viscous 15 Ml (Xylocaine Vi (02/23/19 20:15) Cephalexin Capsule (Keflex Capsule) (02/23/19 20:10) Acetaminophen Tablet (Tylenol Tablet) (02/23/19 20:12) Progress Progress Note : Progress Note Seen and evaluated. We did discuss dsvb-mpw-wptiakj therapy as well as her medications. We will initiate cephalexin by mouth now and continue that as she is allergic to penicillin. Tylenol 500 mg by mouth ordered and Keflex 500 mg by mouth ordered. We will give lidocaine topical mixture on gauze to topically treat pain. Due to and having for the kids, would be difficult to prescribe other narcotic pain medicine patient agrees and understands. Discharged home with return precautions. Patient verbalize understanding inst ructions and agreement with plan. Departure Impression Primary Impression: Pain, dental Additional Impression: Postoperative pain Disposition: 01 HOME, SELF-CARE Condition: Stable Departure-Patient Inst. Decision time for Depature: 20:22 Referrals: PINA HAMLIN (PCP/Family) Primary Care Physician Patient Instructions: Dental Pain, Managing Pain After Surgery Add. Discharge Instructions: All discharge instructions reviewed with patient and/or family. Voiced understanding. You may continue the Tylenol 3 as prescribed. If you are not taking Tylenol 3 then you may take Tylenol/acetaminophen 1000 mg every 6 hours as needed for pain. If you are taken Tylenol 3 one tablet then you may also take 1 tablet of Tylenol/acetaminophen (500 mg) with that. Do not exceed 4000 mg of Tyleno l/acetaminophen in 24 hours. You may use the topical swabs to painful areas every one to 2 hours as needed for pain. Try not to swallow the solution as it may numb the throat a little. It is not dangerous but it would be preferred if you have spit the solution. Follow-up with your dentist on Monday for recheck and further evaluation. Return for worse pain, fever, vomiting, weakness, breathing problems or other concerns as needed. VIRGINIE GARCIA MD Feb 23, 2019 20:20
--- OUTSIDE RECORDS SUMMARY | 2019-02-23 20:28 | XMS REPORT | Continuity of Care Document ---
Author Organization Unknown Address Unknown Allergies Active Description Code Type Severity Reaction Onset Reported/Identified Relationship to Patient Clinical Status Yes No Known Drug Allergies [id number] Drug Allergy Unknown N/A 12/14/2009 Yes amoxicillin [id number] Drug Allergy Unknown N/A 09/04/2018 Medications There is no data. Problems Date Dx Coded Attending Type Code Diagnosis Diagnosed By 09/04/2018 JAZMINE PATE Ot H92.03 OTALGIA, BILATERAL 09/04/2018 JAZMINE PATE Ot R09.81 NASAL CONGESTION 09/04/2018 JAZMINE PATE Ot Z86.19 PERSONAL HISTORY OF OTHER INFECTIOUS AND 09/04/2018 JAZMINE PATE Ot Z88.0 ALLERGY STATUS TO PENICILLIN 09/04/2018 JAZMINE PATE Ot Z90.89 ACQUIRED ABSENCE OF OTHER ORGANS 09/04/2018 JAZMINE PATE Ot Z98.890 OTHER SPECIFIED POSTPROCEDURAL STATES 09/06/2018 JAZMINE PATE Ot H92.03 OTALGIA, BILATERAL 09/06/2018 JAZMINE PATE Ot R09.81 NASAL CONGESTION 09/06/2018 JAZMINE PATE Ot Z86.19 PERSONAL HISTORY OF OTHER INFECTIOUS AND 09/06/2018 JAZMINE PATE Ot Z88.0 ALLERGY STATUS TO PENICILLIN 09/06/2018 JAZMINE PATE Ot Z90.89 ACQUIRED ABSENCE OF OTHER ORGANS 09/06/2018 JAZMINE PATE Ot Z98.890 OTHER SPECIFIED POSTPROCEDURAL STATES 11/16/2018 SEALS DO, DAMON E Ot E86.9 VOLUME DEPLETION, UNSPECIFIED 11/16/2018 SEALS DO, DAMON E Ot J10.1 FLU DUE TO OTH IDENT INFLUENZA VIRUS W O 11/16/2018 SEALS DO, DAMON E Ot O21.0 MILD HYPEREMESIS GRAVIDARUM 11/16/2018 SEALS DO, DAMON E Ot O99.281 ENDO, NUTRITIONAL AND METAB DISEASES COM 11/16/2018 SEALS DO, DAMON E Ot O99.511 DISEASES OF THE RESP SYS COMP , 11/16/2018 SEALS DO, DAMON E Ot R00.0 TACHYCARDIA, UNSPECIFIED 11/16/2018 SEALS DO, DAMON E Ot R50.9 FEVER, UNSPECIFIED 11/16/2018 SEALS DO, DAMON E Ot Z3A.08 8 WEEKS GESTATION OF 11/16/2018 SEALS DO, DAMON E Ot E86.9 VOLUME DEPLETION, UNSPECIFIED 11/16/2018 SEALS DO, DAMON E Ot J10.1 FLU DUE TO OTH IDENT INFLUENZA VIRUS W O 11/16/2018 SEALS DO, DAMON E Ot O21.0 MILD HYPEREMESIS GRAVIDARUM 11/16/2018 SEALS DO, DAMON E Ot O99.281 ENDO, NUTRITIONAL AND METAB DISEASES COM 11/16/2018 SEALS DO, DAMON E Ot O99.511 DISEASES OF THE RESP SYS COMP , 11/16/2018 SEALS DO, DAMON E Ot R00.0 TACHYCARDIA, UNSPECIFIED 11/16/2018 SEALS DO, DAMON E Ot R50.9 FEVER, UNSPECIFIED 11/16/2018 SEALS DO, DAMON E Ot Z3A.08 8 WEEKS GESTATION OF Procedures There is no data. Results Test Result Range SUREPATH PAP RFX HPV mRNA E6/E7 - 11/12/18 00:00 CLINICAL INFORMATION: NRG LMP: PREG NRG PREV. PAP: NRG PREV. BX: NRG SOURCE: [employer] NRG STATEMENT OF ADEQUACY: NRG INTERPRETATION/RESULT: NRG CLINICAL MEDICAL TRANSCRIPTIONIST: NRG COMMENT NRG HIV ANTIGEN/ANTIBODY - 11/12/18 16:48 HIV AG/AB, 4TH GEN NON-REACTIVE NON-REACTIVE CBC - 11/12/18 16:48 WHITE BLOOD CELL COUNT 7.5 Thousand/uL 3.8-10.8 RED BLOOD CELL COUNT 3.96 Million/uL 3.80-5.10 HEMOGLOBIN 12.5 g/dL 11.7-15.5 HEMATOCRIT 37.5 % 35.0-45.0 MCV 94.7 fL 80.0-100.0 MCH 31.6 pg 27.0-33.0 MCHC 33.3 g/dL 32.0-36.0 RDW 12.5 % 11.0-15.0 PLATELET COUNT 156 Thousand/uL 140-400 MPV 11.2 fL 7.5-12.5 ABSOLUTE NEUTROPHILS 6188 cells/uL 5831-1763 ABSOLUTE LYMPHOCYTES 810 cells/uL 850-3900 ABSOLUTE MONOCYTES 420 cells/uL 200-950 ABSOLUTE EOSINOPHILS 53 cells/uL 15-500 ABSOLUTE BASOPHILS 30 cells/uL 0-200 NEUTROPHILS 82.5 % NRG LYMPHOCYTES 10.8 % NRG MONOCYTES 5.6 % NRG EOSINOPHILS 0.7 % NRG BASOPHILS 0.4 % NRG HEP B SURFACE ANTIGEN - 11/12/18 16:48 HEPATITIS B SURFACE ANTIGEN NON-REACTIVE NON-REACTIVE GC/CHLAMYDIA (SWAB OR URINE)-RAPID - 11/12/18 16:48 CHLAMYDIA TRACHOMATIS RNA, TMA NOT DETECTED NOT DETECTED NEISSERIA GONORRHOEAE RNA, TMA NOT DETECTED NOT DETECTED COMMENT NRG Complete blood count (CBC) with automated white blood cell (WBC) differential - 11/15/18 19:11 Blood leukocytes automated count (number/volume) 10.8 10*3/uL 4.3-11.0 Blood erythrocytes automated count (number/volume) 4.92 10*6/uL 4.35-5.85 Venous blood hemoglobin measurement (mass/volume) 15.1 g/dL 11.5-16.0 Blood hematocrit (volume fraction) 43 % 35-52 Automated erythrocyte mean corpuscular volume 88 [foz_us] 80-99 Automated erythrocyte mean corpuscular hemoglobin (mass per erythrocyte) 31 pg 25-34 Automated erythrocyte mean corpuscular hemoglobin concentration measurement (mass/volume) 35 g/dL 32-36 Automated erythrocyte distribution width ratio 12.9 % 10.0- 14.5 Automated blood platelet count (count/volume) 106 10*3/uL 130-400 Automated blood platelet mean volume measurement 10.9 [foz_us] 7.4-10.4 Automated blood neutrophils/100 leukocytes 93 % 42-75 Automated blood lymphocytes/100 leukocytes 4 % 12-44 Blood monocytes/100 leukocytes 2 % 0-12 Automated blood eosinophils/100 leukocytes 0 % 0-10 Automated blood basophils/100 leukocytes 0 % 0-10 Blood neutrophils automated count (number/volume) 10.1 10*3 1.8-7.8 Blood lymphocytes automated count (number/volume) 0.5 10*3 1.0-4.0 Blood monocytes automated count (number/volume) 0.2 10*3 0.0- 1.0 Automated eosinophil count 0.0 10*3/uL 0.0-0.3 Automated blood basophil count (count/volume) 0.0 10*3/uL 0.0-0.1 Comprehensive metabolic panel - 11/15/18 19:11 Serum or plasma sodium measurement (moles/volume) 137 mmol/L 135-145 Serum or plasma potassium measurement (moles/volume) 3.2 mmol/L 3.6-5.0 Serum or plasma chloride measurement (moles/volume) 101 mmol/L 98-107 Carbon dioxide 20 mmol/L 21-32 Serum or plasma anion gap determination (moles/volume) 16 mmol/L 5-14 Serum or plasma urea nitrogen measurement (mass/volume) 9 mg/dL 7-18 Serum or plasma creatinine measurement (mass/volume) 0.99 mg/dL 0.60-1.30 Serum or plasma urea nitrogen/creatinine mass ratio 9 NRG Serum or plasma creatinine measurement with calculation of estimated glomerular filtration rate > NRG Serum or plasma glucose measurement (mass/volume) 141 mg/dL 70-105 Serum or plasma calcium measurement (mass/volume) 9.4 mg/dL 8.5-10.1 Serum or plasma total bilirubin measurement (mass/volume) 0.5 mg/dL 0.1-1.0 Serum or plasma alkaline phosphatase measurement (enzymatic activity/volume) 77 U/L 40-136 Serum or plasma aspartate aminotransferase measurement (enzymatic activity/volume) 38 U/L 5-34 Serum or plasma alanine aminotransferase measurement (enzymatic activity/volume) 37 U/L 0-55 Serum or plasma protein measurement (mass/volume) 8.1 g/dL 6.4-8.2 Serum or plasma albumin measurement (mass/volume) 4.8 g/dL 3.2-4.5 Blood manual differential performed detection - 11/15/18 19:11 Blood monocytes/100 leukocytes 1 % NRG Manual blood segmented neutrophils/100 leukocytes 73 % NRG Blood band neutrophils/100 leukocytes 14 % NRG Manual blood lymphocytes/100 leukocytes 11 % NRG Manual eosinophils/100 leukocytes in nose 0 % NRG Manual blood basophils/100 leukocytes 0 % NRG Blood erythrocyte morphology finding identification NORMAL NRG Manual blood metamyelocytes/100 leukocytes 1 % NRG Complete urinalysis with reflex to culture - 11/16/18 03:45 Urine color determination YELLOW NRG Urine clarity determination CLEAR NRG Urine pH measurement by test strip 6 5-9 Specific gravity of urine by test strip 1.015 1.016-1.022 Urine protein assay by test strip, semi-quantitative NEGATIVE NEGATIVE Urine glucose detection by automated test strip NEGATIVE NEGATIVE Erythrocytes detection in urine sediment by light microscopy NEGATIVE NEGATIVE Urine ketones detection by automated test strip 2+ NEGATIVE Urine nitrite detection by test strip NEGATIVE NEGATIVE Urine total bilirubin detection by test strip NEGATIVE NEGATIVE Urine urobilinogen measurement by automated test strip (mass/volume) NORMAL NORMAL Urine leukocyte esterase detection by dipstick 1+ NEGATIVE Automated urine sediment erythrocyte count by microscopy (number/high power field) NONE NRG Automated urine sediment leukocyte count by microscopy (number/high power field) [HPF] NRG Bacteria detection in urine sediment by light microscopy FEW NRG Squamous epithelial cells detection in urine sediment by light microscopy 0-2 NRG Crystals detection in urine sediment by light microscopy NONE NRG Casts detection in urine sediment by light microscopy NONE NRG Mucus detection in urine sediment by light microscopy NEGATIVE NRG Complete urinalysis with reflex to culture NO NRG Urine drug screening test - 11/16/18 03:45 Urine phencyclidine detection by screening method NEGATIVE NEGATIVE Urine benzodiazepines detection by screening method NEGATIVE NEGATIVE Urine cocaine detection NEGATIVE NEGATIVE Urine amphetamines detection by screening method NEGATIVE NEGATIVE Urine methamphetamine detection by screening method NEGATIVE NEGATIVE Urine cannabinoids detection by screening method NEGATIVE NEGATIVE Urine opiates detection by screening method NEGATIVE NEGATIVE Urine barbiturates detection NEGATIVE NEGATIVE Screening urine tricyclic antidepressants detection NEGATIVE NEGATIVE Urine methadone detection by screening method NEGATIVE NEGATIVE Urine oxycodone detection NEGATIVE NEGATIVE Urine propoxyphene detection NEGATIVE NEGATIVE Complete blood count (CBC) with automated white blood cell (WBC) differential - 11/16/18 05:28 Blood leukocytes automated count (number/volume) 7.6 10*3/uL 4.3-11.0 Blood erythrocytes automated count (number/volume) 4.04 10*6/uL 4.35-5.85 Venous blood hemoglobin measurement (mass/volume) 12.6 g/dL 11.5-16.0 Blood hematocrit (volume fraction) 36 % 35-52 Automated erythrocyte mean corpuscular volume 89 [foz_us] 80-99 Automated erythrocyte mean corpuscular hemoglobin (mass per erythrocyte) 31 pg 25-34 Automated erythrocyte mean corpuscular hemoglobin concentration measurement (mass/volume) 35 g/dL 32-36 Automated erythrocyte distribution width ratio 12.8 % 10.0- 14.5 Automated blood platelet count (count/volume) 85 10*3/uL 130- 400 Automated blood platelet mean volume measurement 11.1 [foz_us] 7.4-10.4 Automated blood neutrophils/100 leukocytes 91 % 42-75 Automated blood lymphocytes/100 leukocytes 5 % 12-44 Blood monocytes/100 leukocytes 3 % 0-12 Automated blood eosinophils/100 leukocytes 0 % 0-10 Automated blood basophils/100 leukocytes 0 % 0-10 Blood neutrophils automated count (number/volume) 6.9 10*3 1.8-7.8 Blood lymphocytes automated count (number/volume) 0.4 10*3 1.0-4.0 Blood monocytes automated count (number/volume) 0.2 10*3 0.0- 1.0 Automated eosinophil count 0.0 10*3/uL 0.0-0.3 Automated blood basophil count (count/volume) 0.0 10*3/uL 0.0-0.1 Whole blood basic metabolic panel - 11/16/18 05:28 Serum or plasma sodium measurement (moles/volume) 139 mmol/L 135-145 Serum or plasma potassium measurement (moles/volume) 3.1 mmol/L 3.6-5.0 Serum or plasma chloride measurement (moles/volume) 112 mmol/L 98-107 Carbon dioxide 18 mmol/L 21-32 Serum or plasma anion gap determination (moles/volume) 9 mmol/L 5-14 Serum or plasma urea nitrogen measurement (mass/volume) 9 mg/dL 7-18 Serum or plasma creatinine measurement (mass/volume) 0.66 mg/dL 0.60-1.30 Serum or plasma urea nitrogen/creatinine mass ratio 14 NRG Serum or plasma creatinine measurement with calculation of estimated glomerular filtration rate > NRG Serum or plasma glucose measurement (mass/volume) 118 mg/dL 70-105 Serum or plasma calcium measurement (mass/volume) 8.0 mg/dL 8.5-10.1 CULTURE, URINE - 11/21/18 11:27 CULTURE, URINE, ROUTINE SEE NOTE NRG QUAD SCREEN - 01/30/19 15:54 Maternal Weight 146 lbs NRG Est'd Date of Delivery 06/29/2019 NRG SAURABH Determined by LMP NRG Mother's Ethnic Origin NRG Number of Fetuses 1 NRG Insulin Depend Diabetic NO NRG Repeat Specimen NO NRG Hx Of Neural Tube Defects NO NRG Prev Down Synd NO NRG Donor Egg NO NRG Donor Age: Egg Retrieval NOT GIVEN NRG INTERPRETATION: NRG Risk for ONTD 1 IN 2591 NRG Age Risk Down Syndrome 1 IN 355 NRG LINDSAY Down Syndrome Risk <1 IN 5000 NRG LINDSAY Trisomy 18 Risk <1 IN 5000 NRG AFP, Serum 71.4 ng/mL NRG AFP MoM 1.52 NRG Estriol, Free 1.83 ng/mL NRG Estriol MoM 1.30 NRG hCG, Serum 22.28 IU/mL NRG hCG MoM 0.98 NRG Inhibin A, Dimeric 161 pg/mL NRG Inhibin A MoM 0.93 NRG COMMENTS: NRG COMMENT NRG Calc'd Gestational Age 18.6 weeks NRG Cigarette smoker NOT GIVEN NRG Encounters ACCT No. Visit Date/Time Discharge Status Pt. Type Provider Facility Loc./Unit Complaint [id number] 02/21/2019 15:30:00 ACT Outpatient [facility] [id number] 01/30/2019 15:45:00 Document Registration [id number] 11/21/2018 11:30:00 Document Registration [id number] 11/12/2018 15:15:00 Document Registration [id number] 11/15/2018 22:38:00 11/16/2018 18:30:00 DIS Inpatient DAMON MANNING DO [facility] 4TH INF A, N/U/D, TARCHYCARDIA HYPOTENSION,PREG [id number] 09/04/2018 17:34:00 09/04/2018 19:00:00 DIS Emergency JAZMINE PATE [facility] ER BILAT EAR PAIN/CONGESTION
[2019-02-23] MEDS ORDERED: CEPH500C PO (20:32)
[2019-02-23 20:34] VITALS: BP 115/79
== END 2019-02-23 20:34 | disposition home or self-care (01) ==
LOC: EDUNIT# 19:47 → ER 19:49
DX: O99.612 Diseases of the digestive system complicating pregnancy, second trimester (principal); K08.89 Other specified disorders of teeth and supporting structures; G89.18 Other acute postprocedural pain; Z88.0 Allergy status to penicillin; Z88.1 Allergy status to other antibiotic agents; Z87.891 Personal history of nicotine dependence; Z90.89 Acquired absence of other organs; Z3A.23 23 weeks gestation of pregnancy
CPT/HCPCS: 99283

== ENCOUNTER 2019-06-12 09:25 | Outpatient (CLI) | payer BC, MEDICAID ==
[~2019-06-12] VITALS: Ht 177.8 cm; Wt 71.8 kg
[~2019-06-12 09:25] MED LIST changes: +CEPH500C PO
--- NOTE | 2019-06-12 09:25 | NUR ---
Pt arrived to unit via wheelchair per ED staff. wt obtained and to room 320. gowned, unable to void at this time. To bed and monitors on. Oriented to bed controls, call light. plan of care reviewed with pt and denied questions.
[2019-06-12 10:00] VITALS: BP 112/68
--- NOTE | 2019-06-12 10:00 | NUR ---
Noted thigh high compression stockings to both legs. pt reports she wears them for varicosities in legs 3x/week.
--- NOTE | 2019-06-12 10:12 | NUR ---
Dr Ordoñez notified of pt arriva., c/o, assessment, vss, sve, fhr pattern reactive, contractions noted. New order to monitor over 2 hours and recheck cervix. plan of care reviewed with pt and at bedside.
--- NOTE | 2019-06-12 10:50 | NUR ---
pt requests to ambulate. up in halls walking
--- NOTE | 2019-06-12 11:16 | NUR ---
pt back to bed and monitors resumed
--- NOTE | 2019-06-12 12:05 | NUR ---
Dr Ordoñez called and notified of sve, contractions. New orders for discharge received. plan of care reviewed with pt and family at bedside.
--- NOTE | 2019-06-12 12:15 | NUR ---
Discharge instructions explained, signed and copy to patient. pt verbalized understanding of instructions and denied questions.
--- NOTE | 2019-06-12 12:25 | NUR ---
Pt ambulates self off unit accompanied by s.o. and family. To private vehicle with belongings in hand.
--- NOTE | 2019-06-13 08:04 | Physician Query-Final Dx ---
ROSS MARTINEZ 06/13/19 0804: Clinic Account Progress/Dx Physician Query: Please give diagnosis Please include # weeks gestation Date of Service Jun 12, 2019 at 09:25 DAMON MANNING DO 06/17/19 0744: Clinic Account Progress/Dx Physician Query: Please give diagnosis (Intrauterine at 38 weeks 2. Pelvic Pain 3. Contractions) DIAGNOSIS: Diagnosis Intrauterine at 38 weeks 2. Pelvic Pain 3. Contractions Progress Note: Once admitted, Ms. Claudio was placed on the External Monitor. She was noted to have irregular contractions. We allowed her to walk for several hours enact cervical change, but her cervix never changed. Consequently, she as discharged to home. ROSS Garland Jun 13, 2019 08:04 DAMON MANNING DO Jun 17, 2019 07:44
== END 2019-06-12 12:25 | disposition home or self-care (01) ==
LOC: WSo 09:25 → LDRP 09:27 → WSo 12:25
PROVIDERS: ATTEND Obstetrics & Gynecology
DX: O62.8 Other abnormalities of forces of labor (principal); O26.893 Other specified pregnancy related conditions, third trimester; R10.2 Pelvic and perineal pain; Z3A.38 38 weeks gestation of pregnancy
CPT/HCPCS: 99214

== ENCOUNTER 2022-04-19 20:21 | Emergency (ER) | payer MEDICAID ==
[~2022-04-19 20:21] MED LIST changes: +ACET-11 PO; -ACET1TAB43 PO
--- NOTE | 2022-04-19 21:42 | Diagnostic Imaging Report ---
INDICATION: Left ankle pain AP, oblique and lateral views of the left ankle are obtained. FINDINGS: No acute fracture or dislocation is identified. No abnormal lytic or sclerotic focus is seen, and there is no radiopaque foreign body. IMPRESSION: No acute abnormality. Dictated by: Dictated on workstation # [id number]
--- NOTE | 2022-04-19 21:43 | Diagnostic Imaging Report ---
Indication: Left foot pain AP, oblique and lateral views of left foot are obtained. FINDINGS: No acute fracture or dislocation is identified. No abnormal lytic or sclerotic focus is seen, and there is no radiopaque foreign body. IMPRESSION: No acute abnormality. Dictated by: Dictated on workstation # [id number]
[2022-04-19] MEDS ORDERED: RX-NAPROXEN (NAPROSYN) 250 MG TAB PPK#4 PO STA (21:49)
[2022-04-19] MEDS ORDERED: NAPR500T8 PO (21:52)
--- NOTE | 2022-04-19 21:52 | ED Lower Extremity ---
General Chief Complaint: Lower Extremity Stated Complaint: FOOT INJURY Nursing Triage Note: TO ED VIA POV AND AMBULATORY TO [facility] WITH C/O DROPPING DRESSER ON LEFT FOOT "A COUPLE HOURS AGO". HAS NOT TAKEN ANYTHING FOR PAIN. Source: patient History of Present Illness Date Seen by Provider: Apr 19, 2022 Time Seen by Provider: 21:25 Initial Comments PT ARRIVES VIA POV FROM HOME C/O LEFT FOOT INJURY STATES ABOUT 2 HOURS PRIOR TO ARRIVAL, SHE DROPPED A DRESSER ON HER LEFT FOOT WAS WEARING "FLIP FLOP" TYPE SANDALS AT THE TIME NO PARESTHESIAS OR MOTOR DEFICITS, BUT IS PAINFUL TO BEAR WEIGHT HAS NOT TAKEN ANYTHING FOR PAIN, HAS NOT APPLIED ICE NO PRIOR INJURY TO THIS FOOT PCP: [facility] Allergies and Home Medications Allergies Coded Allergies: amoxicillin (Verified Allergy, Unknown, 09/04/18) Patient Home Medication List Home Medication List Reviewed: Yes Naproxen (Naproxen) 500 Mg Tablet.dr, 500 MG PO BID Prescribed by: NITO PFEIFFER on 04/19/222151 Vit W-Ca,Fe,FA(<1 mg) ( Formula) 1 Each Tablet, 1 TAB PO DAILY, (Reported) Entered as Reported by: KAREN GRACE on 11/16/18 1000 Review of Systems Constitutional: no symptoms reported Musculoskeletal: see HPI Skin: no symptoms reported Psychiatric/Neurological: No Symptoms Reported Past Axnvmmc-Hdytcy-Mjxgdu Hx Patient Social History Tobacco Use?: No Substance use?: No Alcohol Use?: No Past Medical History Surgeries: Yes (D&C) Gallbladder, Tonsillectomy Respiratory: No Cardiac: No Neurological: No Female Reproductive Disorders: Denies Sexually Transmitted Disease: Yes Genitourinary: No Gastrointestinal: Yes (S/P CHOLECYSTECTOMY) Gall Bladder Disease Musculoskeletal: No Endocrine: No HEENT: No Cancer: No Psychosocial: No Integumentary: No Blood Disorders: No Physical Exam Vital Signs Vital Signs - First Documented 04/19/22 20:42 Temp 36.6 Pulse 76 Resp 16 B/P (MAP) 121/76 (91) Pulse Ox 98 O2 Delivery Room Air Capillary Refill : Less Than 3 Seconds Height, Weight, BMI Height: 5'10.00" Weight: 135lbs. 8.0oz. [id number]; 22.71 BMI Method:Stated General Appearance: WD/WN, no apparent distress Feet: left foot bone tenderness, left foot ecchymosis, left foot limited range of motion (DUE TO PAIN ), left foot pain, left foot soft tissue tenderness, left foot swelling, left foot other (DORSAL ASPECT OF LEFT FOOT. DISTAL MOTOR/SENSORY/VASCULAR INTACT. 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 as tested, no motor/sensory deficits, alert, normal mood/affect, oriented x 3 Skin: normal color, warm/dry Procedures/Interventions Splinting and Joint Reduction : Long wrap: Yes Immobilizers: Step Light Walker s/m/lg Progress/Results/Core Measures Results/Orders My Orders Orders - NITO PFEIFFER DO Foot, Left, 3 Views (04/19/22 21:26) Ankle, Left, 3 Views (04/19/22 21:26) Long Bandage (04/19/22 21:49) Steplite (04/19/22 21:49) Rx-Naproxen (Rx-Naprosyn) (04/19/22 21:49) Vital Signs/I&O 04/19/22 20:42 Temp 36.6 Pulse 76 Resp 16 B/P (MAP) 121/76 (91) Pulse Ox 98 O2 Delivery Room Air Blood Pressure Mean: 91 Diagnostic Imaging Comments XRAYS--PER RADIOLOGIST REPORTS AT 2144 LEFT FOOT--FINDINGS: No acute fracture or dislocation is identified. No abnormal lytic or sclerotic focus is seen, and there is no radiopaque foreign body. IMPRESSION: No acute abnormality. LEFT ANKLE--FINDINGS: No acute fracture or dislocation is identified. No abnormal lytic or sclerotic focus is seen, and there is no radiopaque foreign body. IMPRESSION: No acute abnormality. Reviewed: Reviewed by Me Departure Impression Primary Impression: Contusion of left foot Disposition: 01 HOME, SELF-CARE Condition: Stable Departure-Patient Inst. Decision time for Depature: 21:50 Referrals: PINA HAMLIN (PCP) Primary Care Physician TUAN RADER MD Patient Instructions: Contusion (DC), How to Use an Elastic Bandage, Walking Boot Add. Discharge Instructions: ICE TO AREA AT 20 MINUTE INTERVALS LONG WRAP AND WALKING BOOT AT ALL TIMES ELEVATE FOOT MUCH POSSIBLE FOLLOW UP WITH DR. RADER, ORTHOPEDIC SURGEON, IN 1 WEEK FOR FURTHER CARE--CALL IN THE MORNING TO SCHEDULE APPOINTMENT All discharge instructions reviewed with patient and/or family. Voiced understanding. Scripts Naproxen (Naproxen) 500 Mg Tablet. 500 MG PO BID, #20 TAB Prov: NITO PFEIFFER DO 04/19/22 NITO PFEIFFER DO Apr 19, 2022 21:52
[2022-04-19 22:04] VITALS: BP 120/72
== END 2022-04-19 22:07 | disposition home or self-care (01) ==
LOC: EDUNIT# 20:21 → ER 20:23
DX: S90.32XA Contusion of left foot, initial encounter (principal); Z28.310 Unvaccinated for COVID-19; W20.8XXA Other cause of strike by thrown, projected or falling object, initial encounter
CPT/HCPCS: 73610; 73630

== ENCOUNTER → 2022-04-26 | Outpatient (CLI) | payer MEDICAID ==
[~2022-04-26] MED LIST changes: +NAPR500T8 PO
--- NOTE | 2022-04-26 18:20 | Diagnostic Imaging Report ---
INDICATION: Foot pain after injury earlier this month. EXAMINATION: Left foot 04/26/2022 COMPARISON: 04/19/2022. FINDINGS: 3 views of the foot. There is an intra-articular fracture involving the proximal aspect of the middle 5th phalanx. The remaining osseous structures appear intact. There are no dislocations. IMPRESSION: 1. Intra-articular fracture of the middle 5th phalanx. Dictated by: Dictated on workstation # [id number]
== END ==
LOC: ORTHO 15:04
PROVIDERS: ATTEND Orthopaedic Surgery
DX: S92.912A Unspecified fracture of left toe(s), initial encounter for closed fracture (principal); X58.XXXA Exposure to other specified factors, initial encounter
CPT/HCPCS: 73630; 99203